=== PATIENT | male | born 1970 | race Caucasian/White ===

== ENCOUNTER 2020-10-10 14:13 | Emergency (ER) | payer OTHER ==
[~2020-10-10] VITALS: Ht 182.9 cm; Wt 100.0 kg
[~2020-10-10 14:13] MED LIST: ABILIFY 15MG TA15 MG PO; AMBIEN 10MG10 MG PO; CLEOCIN HCL300 MG PO; DEPAKOTE ER 25250 MG PO; DEPAKOTE ER 50500 MG PO; DESYREL DIVIDO150 M1 PO; DIABETA 5MG5 MG/TAB PO; EFFEXOR 75M75 MG/TAB PO; GLUCOPHAGE1000 MG PO; GLUCOPHAGE500 MG/TAB PO; LODINE400 MG; LOPID 600M600 MG/TAB PO; NICODERM C21 MG/PATC TD; NORCO 325 MG-51 TAB PO; NORCO 325 MG-7.1 TAB PO; PRINIVIL5 MG PO; PROAIR HFA0.09 MG/AC IH; ROXICODONE 55 MG/TAB PO; ZITHROMAX Z PA250 MG PO
[2020-10-10 14:32] VITALS: TEMP 97.6
[2020-10-10 14:49] LABS: BASO # 0.1 (0.0-0.2); BASO % 0.6 % (0.0-2.0); EOS # 0.2 (0.0-0.7); EOS % 2.8 % (0-4.0); GRAN # 6.1 (1.4-6.5); GRAN % 70.5 % (42.2-75.2); HEMOGLOBIN 12.2 g/dl (13.5-18.0); LYMPH # 1.6 (1.2-3.4); LYMPH % 18.5 % (20.0-51.0); MEAN CELL VOLUME 87 fl (80.0-100.0); MEAN CORPUSCULAR HEMOGLOBIN 30 pg (27.0-31.0); MEAN CORPUSCULAR HGB CONC 34 g/dl (33.0-37.0); MEAN PLATELET VOLUME 9.6 fl (7.4-10.4); MONO # 0.7 (0.1-0.6); MONO % 7.5 % (1.7-9.3); PLATELET COUNT 298 K/mm3 (130-400); RED BLOOD COUNT 4.14 M/mm3 (4.20-5.60); REDCELL DISTRIBUTION WIDTH-CV 13.7 % (11.5-14.5)
[2020-10-10 14:52] LABS: HEMATOCRIT 35.8 % (42.0-52.0)
[2020-10-10 16:34] LABS: ALBUMIN 3.5 gm/dL (3.5-5.0); BILIRUBIN,TOTAL 0.3 mg/dL (0.0-1.0); CALCIUM 8.2 mg/dL (8.4-10.2); CREATININE, serum 1.2 (0.66-1.25); POTASSIUM 4.5 mmol/L (3.4-5.0); TOTAL PROTEIN 6.1 gm/dL (6.4-8.2)
[2020-10-10 19:06] VITALS: BP 127/73; PULSE 68
== END 2020-10-10 19:07 | disposition home or self-care (01) ==
LOC: COL.ER 14:13
PROVIDERS: Nurse Practitioner Primary Care; Personal Emergency Response Attendant
DX: M54.2 Cervicalgia (principal); M54.6 Pain in thoracic spine; R42 Dizziness and giddiness; H53.8 Other visual disturbances; R06.02 Shortness of breath; F32.9 Major depressive disorder, single episode, unspecified; F41.9 Anxiety disorder, unspecified; E11.9 Type 2 diabetes mellitus without complications; F17.210 Nicotine dependence, cigarettes, uncomplicated; Z79.899 Other long term (current) drug therapy; Z79.84 Long term (current) use of oral hypoglycemic drugs; Z88.2 Allergy status to sulfonamides
CPT/HCPCS: J2270; J7030